=== PATIENT | female | born 1965 | race Caucasian/White ===

== ENCOUNTER 2017-03-11 00:41 | Observation (INO) | payer OTHER ==
[~2017-03-11] VITALS: Ht 167.6 cm; Wt 90.0 kg
--- NOTE | ~2017-03-11 | HP ---
Unit #: [id number] #: [id number] Patient: AKANKSHA VENTURA [id number] [facility]. [place], [place] [address] [id number] I MR#: [id number] NAME: AKANKSHA VENTURA ROOM: 322 Age: 51 Sex: F Admission Date: 03/11/2017 : 1965 Attending Physician: Jessica Dale M.D. Primary Care Physician: No Primary Care Physician HISTORY AND PHYSICAL HISTORY OF PRESENT ILLNESS This is a 51-year-old white female having history of non STEMI and an angioplasty and stent in a history of in [place] back in May 2010, had a sent placed to the proximal LAD. Other coronaries per cath report were normal. Ejection fraction 65%. Patient has not seen a journalism professor in over three years. Since the stent, she has had one stress test. She said that was normal. She moved to [place] about a year and a half ago. She does not have a journalism professor. 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 She said she was at work yesterday and started having some neck pain, that is sometimes chronic. She has chronic back and neck problems. She said then on the way home she was driving and she started experiencing left anterior chest wall pain. She said it felt like a heavy pushing pressure. She got a little short of breath and felt a little hot, had slight nausea. She continued to get home. The pain was waxing and waning. She took her blood pressure. It was elevated over 200 systolically. She then took her blood pressure medication early, which she usually takes in the evening. She said she waited about an hour. Her blood pressure was still elevated to 210/110. She said the discomfort in the chest returned, so she came to the emergency room for further evaluation. She denies any pain up into her neck, bilateral jaws, shoulders, arms, or elbows. She denies any palpitations. No dizziness, presyncope, or syncope. She has not had any recent cough, fever, or chills. In the emergency room, the patient's blood pressure was elevated at 220 systolic. Her initial cardiac enzymes were negative. Her D-dimer was less than 200. Her EKG showed sinus rhythm. It did show some nondiagnostic Q waves in inferolateral lead, left atrial abnormality. The patient was given some nitroglycerin along with clonidine for the elevated blood pressure and aspirin. She was transferred [facility] to [facility] for admission and further evaluation and management. PAST MEDICAL HISTORY 1. History of non STEMI back in 2009. Cath report from [facility] in [facility] revealed 95% stenosis in the proximal LAD, status post PCI and drug-eluting stent to the proximal LAD. Other coronaries: Left main was normal. Circumflex normal. RCA normal. LV EF was 65% with mild anteroapical hypokinesis. 2. A 2D echo done at [facility] in May 2010 shows LV EF of 55%, pulmonary artery pressure 26 mmHg, trivial TR, otherwise unremarkable. 3. Hypertension. 4. Hyperlipidemia. 5. Chronic back pain. Unit #: [id number] #: [id number] Patient: AKANKSHA VENTURA 6. Stress test about three years ago, told was unremarkable. 7. Active nicotine abuse. PAST SURGICAL HISTORY Status post PCI and stent to the proximal LAD back in 2009. HOME MEDICATIONS 1. Lisinopril 20 mg p.o. twice daily. 2. Metoprolol 50 mg half tablet twice daily. 3. Hydrochlorothiazide 25 mg p.o. daily. ALLERGIES No known drug allergies. SOCIAL HISTORY Patient lives with her family. She moved about a year and a half ago from [place]. She works at the [employer]. She smokes less than half pack a day. Has been smoking off and on most of her adult life. No alcohol or illicit drug abuse. FAMILY HISTORY Her mother at the age of 79 of some type of heart problem. She did have a history of a CABG. Her father has had a CABG. He is doing well at the age of 78. Her siblings are in generally well health. REVIEW OF SYSTEMS CONSTITUTIONAL: Denies fever or chills. No recent weight gain, weight loss. HEENT: Denies headache or dizziness. No visual or hearing changes. No lymphadenopathy, thyromegaly. No difficulty swallowing. CARDIOVASCULAR: Chest pain present. Denies palpitations. Denies increased lower extremity edema. PULMONARY: Slight shortness of breath with the chest pain. Denies paroxysmal nocturnal dyspnea or orthopnea. GASTROINTESTINAL: Denies nausea, vomiting, diarrhea, or abdominal pain. NEUROLOGIC: No focal weakness. PHYSICAL EXAMINATION GENERAL: On exam, Ms. Ventura is a 51-year-old white female in no acute respiratory distress. She is awake, alert, and oriented. VITAL SIGNS: Blood pressure 126/78, heart rate 66, respirations 18, temperature 98.1, O2 saturations 95% on room air. NECK: Trachea midline. No thyromegaly. No lymphadenopathy. Normal carotid upstrokes. No jugular venous distention. HEART: S1, S2. Regular rate and rhythm. No clicks, murmurs or rubs. LUNGS: Diminished, otherwise clear. ABDOMEN: Slightly obese, nontender. Positive bowel sounds present. EXTREMITIES: Pedal pulses are palpable. No pedal edema. DIAGNOSTIC STUDIES LABORATORY: Glucose 91, BUN 15, creatinine 0.8, eGFR 84.8, sodium 136, potassium 3.9, chloride 102, CO2 of 25, calcium 9.1. Magnesium 1.7. WBC 6.9, hemoglobin 14.4, hematocrit 43.7, platelets 230,000. INR 0.9. Initial cardiac enzymes: Troponin less than 0.01, less than 0.01. This morning, troponin less than 0.03. D-dimer was less than 20. IMAGING: Chest x-ray: No active disease. Unit #: [id number] #: [id number] Patient: AKANKSHA VENTURA CARDIOVASCULAR: EKG shows normal sinus rhythm with ventricular rate 64 beats per minute, prolonged QT, left atrial abnormality, poor R-wave progressive, nondiagnostic Q waves in inferolateral leads. IMPRESSION 1. Chest pain. 2. (1) unstable angina. 3. History of non ST elevation myocardial infarction back in 2009, status post percutaneous coronary intervention and drug-eluting stent to the proximal left anterior descending. 4. Hypertension, poorly controlled. 5. Hyperlipidemia. 6. Chronic neck and back pain. 7. Active nicotine abuse. 8. Hypomagnesemia. PLAN 1. Continue to monitor cardiac enzymes. If the next set is negative, will proceed with a stress test to further evaluate for ischemic heart disease. 2. Did obtain the cardia cath report from [facility] and it gave the description of the cath. There was no other blockage on the other arteries, except for the proximal left anterior descending which was stented. 3. Patient will continue on aspirin along with statin and a beta regina. Also, ERICKA inhibitor and hydrochlorothiazide for better blood pressure management. Will make any adjustments for better blood pressure control. 4. Encourage the patient to completely quit smoking. 5. Smoking cessation information provided to the patient. 6. Will supplement magnesium with 2 g IV x1 dose today. 7. Will obtain a 2D echo to evaluate left ventricular function and valve. 8. Further recommendations pending per Dr. Dale. Dictated by Jessie Mills, John.P.[email or web address] for Latoya Rojas/deann TD: 03/11/2017 14:43 JOB #: [id number] HISTORY AND PHYSICAL Page 1 of 1 X Jessie Mills APRN X HISTORY AND PHYSICAL
--- NOTE | ~2017-03-11 | ST ---
Unit #: [id number] #: [id number] Patient: AKANKSHA HOGAN [id number] [facility]. [address] [address] [id number] I MR#: [id number] NAME: AKANKSHA HOGAN : 1965 SEX: F STUDY DATE/TIME: 03/11/2017 UNIT: C3A PCU ROOM: [facility] STUDY DESCRIPTION: Exercise stress test Attending Physician: Jessica Dale M.D. Primary Care Physician: No Primary Care Physician CARDIOLOGY REPORT PROCEDURE PERFORMED Exercise Cardiolite stress test. PROCEDURE BASELINE EKG: Normal sinus rhythm with ventricular rate 63 beats per minute, poor R wave progression, nondiagnostic Q waves in inferolateral leads. The patient walked on the treadmill for 9 minutes utilizing the Dhaval protocol, achieving a workload of 10.1 METS. She achieved 83% of the maximum target heart rate at 141 beats per minute with a maximum blood pressure response of 172/104 mmHg. EKG during the test was equivocal to baseline. No acute ischemic changes. The patient had no complaints of chest pain, palpitations or dizziness. Had increased shortness of breath and fatigue, which resolved in the recovery phase. IMPRESSION 1. Functional class 3 with a workload of 10.1 METS. 2. Patient walked for 9 minutes achieving 83% of maximum target heart rate at 141 beats per minute with a blood pressure response of 172/104 mmHg. 3. It is noted at the end of recovery phase the patient's blood pressure decreased down to 148/102 mmHg. 4. EKG during the test was equivocal to baseline. No acute ischemic changes. 5. The patient had no complaints of chest pain, palpitations or dizziness. Had increased shortness of breath and fatigue, which resolved in recovery phase. 6. Cardiolite was injected at maximum target heart rate. Radionuclide test pending. Please correlate with nuclear images. 7. Noted the patient has been instructed to get her blood pressure medication after the stress test due to elevated blood pressure, which is lisinopril and Lopressor. Dictated by... Jessie Mills A.P.R.N. for Jessica Dale M.D. Unit #: [id number] #: [id number] Patient: AKANKSHA HOGAN CEC/db TD: 03/11/2017 12:40 JOB #: [id number] CARDIOLOGY REPORT Page 1 of 1 X Jessie Mills APRN CARDIOLOGY REPORT
--- NOTE | ~2017-03-11 | TH ---
Unit #: [id number] #: [id number] Patient: AKANKSHA HOGAN [id number] [address] [address] [id number] I MR#: [id number] NAME: AKANKSHA HOGAN : 1965 SEX: F STUDY DATE/TIME: UNIT: C3A PCU ROOM: [facility] STUDY DESCRIPTION: Nuclear Study Attending Physician: Jessica Dale M.D. Primary Care Physician: No Primary Care Physician CARDIOLOGY REPORT EXAM Exercise Cardiolite Stress Test - Nuclear Portion PROCEDURE Using technetium 99m labeled Cardiolite, rest and stress SPECT images were obtained. Multiple SPECT images were obtained in various views including horizontal and vertical long axis and short axis views of the left ventricle. Images were obtained by gated SPECT method. The patient was administered 10.52 mCi of Cardiolite at rest. The patient was administered 30.5 mCi of Cardiolite at peak exercise. Total exercise time is nine minutes. On the stress images, there is normal perfusion noted. The rest images show normal perfusion. Comparing rest and stress images, there is no stress-induced ischemia noted. The left ventricular ejection fraction is calculated to be 67%. There is no focal wall motion abnormality seen. CONCLUSION 1. No stress-induced ischemia noted. 2. The left ventricular ejection fraction is calculated to be 67%. 3. There is no focal wall motion abnormality seen. 4. Normal exercise Cardiolite stress test. Dictated by... Latoya Rojas TD: 03/12/2017 05:48 JOB #: [id number] Unit #: [id number] #: [id number] Patient: AKANKSHA HOGAN CARDIOLOGY REPORT Page 1 of 1 X Jessica Dale MD <ELECTRONICALLY SIGNED> 03/15/17 1429 CARDIOLOGY REPORT
--- NOTE | ~2017-03-11 | EKG ---
PATIENT: AKANKSHA HOGAN UNIT #: [id number] Ventricular Rate: 64 BPM Atrial Rate: 64 BPM P-R Interval: 158 ms QRS Duration: 96 ms Q-T Interval: 472 ms QTC Calculation(Bezet): 486 ms P [place]: 66 degrees Calculated R [place]: 58 degrees Calculated T [place]: 51 degrees Diagnosis Line: Normal sinus rhythm Diagnosis Line: Prolonged QT Diagnosis Line: Abnormal ECG Diagnosis Line: No previous ECGs available Diagnosis Line: Confirmed by MASTER MANCUSO MD ([id number]) on Diagnosis Line: 03/11/2017 3:47:27 PM INTERPRETING MD: ERVIN
[2017-03-11] MEDS ORDERED: LISINOPRIL PO (01:31)
[2017-03-11] MEDS ORDERED: LOPRESSOR (01:32)
[2017-03-11] MEDS ORDERED: ZOCOR (01:32)
[2017-03-11] MEDS ORDERED: CELEXA (01:32)
[2017-03-11 06:44] LABS: HEMATOCRIT 43.7 % (35.0-45.0); HEMOGLOBIN 14.4 gm/dL (12.0-16.0); MEAN CELL VOLUME 92.5 FL (83-96); MEAN CORPUSCULAR HEMOGLOBIN 30.5 PG (28-34); MEAN PLATELET VOLUME 8.5 FL (6.5-11.5); RED BLOOD COUNT 4.73 X10e (3.90-5.30); RED CELL DISTRIBUTION WIDTH 13.7 % (11.0-15.5); WHITE BLOOD COUNT 6.9 X10e3 (4.0-10.5)
[2017-03-11 06:57] LABS: INR 0.9; PROTHROMBIN TIME (PATIENT) 10.3 SECONDS (10.0-11.7)
[2017-03-11 07:27] LABS: BUN/CREATININE RATIO 18.75; CALCIUM SERUM 9.1 mg/dL (8.4-10.2); CREATININE SERUM 0.8 mg/dL (0.6-1.4); GLOM FILT RATE Estimated 84.8 mL/min (>60); MAGNESIUM 1.7 mg/dL (1.6-3.0); POTASSIUM 3.9 mmol/L (3.5-5.1)
[2017-03-11] MEDS ORDERED: LOPRESSOR PO (09:21)
[2017-03-11] MEDS ORDERED: HYDROCHLOROTHIA25 MG PO (09:32)
[2017-03-11] MEDS ORDERED: LIPITOR40 MG PO (16:04)
[2017-03-11] MEDS ORDERED: ACETAMINOPHEN325 MG PO (16:06)
[2017-03-11] MEDS ORDERED: ASPIRIN81 MG PO (16:07)
== END 2017-03-11 17:35 | disposition home or self-care (01) | DRG 311 ==
LOC: C3A PCU 01:06
PROVIDERS: Internal Medicine Cardiovascular Disease
DX: I20.0 Unstable angina (principal); I10 Essential (primary) hypertension; M54.9 Dorsalgia, unspecified; G89.29 Other chronic pain; E78.5 Hyperlipidemia, unspecified; F17.200 Nicotine dependence, unspecified, uncomplicated; Z79.899 Other long term (current) drug therapy; I25.2 Old myocardial infarction; Z98.61 Coronary angioplasty status; E83.42 Hypomagnesemia
CPT/HCPCS: 78452; 80048; 80061; 83735; 84484; 85027; 85610; 93005; 93017; A9500; G0378; J3475